=== PATIENT | female | born 1985 | race Caucasian/White ===

== ENCOUNTER 2019-06-12 16:40 | Observation (INO) | payer MEDICAID ==
[~2019-06-12] VITALS: Ht 165.1 cm; Wt 68.0 kg
[2019-06-12 18:41] LABS: BILIRUBIN,URINE NEGATIVE (NEGATIVE); UROBILINOGEN,URINE NORMAL (NEGATIVE)
[2019-06-12 18:44] LABS: BASOPHIL % 0.1 % (0.0-0.2); EOSINOPHIL # 0.1 10^3/uL (0.0-0.2); EOSINOPHIL % 1.2 % (0.0-5.0); HEMOGLOBIN 11.9 g/dL (12.0-15.0); MEAN CELL HGB 32.5 pg (26-34); MEAN CELL HGB CONCENTRATION 34.1 g/dL (33-37); MEAN CORP VOLUME 95.4 fL (78-100); MEAN PLATELET VOLUME 9.4 fL (7.8-11.0); MONOCYTES # 0.6 10^3/uL (0.3-0.8); MONOCYTES % 8.4 % (5.0-12.0); NEUTROPHIL # 5.2 10^3/uL (1.8-7.7); NEUTROPHILS % 75.7 % (41.0-85.0); RED CELL DISTRIBUTION WIDTH 13.7 % (11.5-14.5); WHITE BLOOD CELL 6.9 10^3/uL (4.5-11.0)
[2019-06-12 18:45] LABS: APPEARANCE,URINE CLEAR (CLEAR); UA COLOR YELLOW (YELLOW)
[2019-06-12] MEDS ORDERED: CELESTONE IM ONE (20:30)
[2019-06-12] MEDS ORDERED: CELESTONE ONE (20:31)
--- NOTE | 2019-06-12 20:35 | DIREP ---
PROCEDURE:US OB 2 3TRI DETAILED TRANSABD COMPARISON:[facility], US, US OB 2 3TRI DETAILED TRANSABD, 04/21/2019, 11:14 AM. INDICATIONS:28WEEK WITH VAGINAL BLEEDING AND COMPLETE PREVIA TECHNIQUE:Transabdominal sonography of a gravid uterus was performed. FINDINGS: Cervix Length:3.91 cm closed Heart Rate:153.58 1/min Estimated Weight:1480.67 g Biparietal Diameter:7.61 cmGA:30 weeks, 4 days Head Circumference:28.37 cmGA:31 weeks, 1 day Abdominal Circumference:26.02 cm GA:30 weeks, 1 day Femur Length:5.51 cm GA:29 weeks, 0 days Estimated weight 1481 g, 3 lb 4 oz Clinical age 28 weeks 0 days Ultrasound age 30 weeks 2 days, estimated due date 08/19/2019 POSITION:Transverse PLACENTAAnterior low-lying , 1.7 cm from the os. CONCLUSION:Intrauterine gestation with heart rate of 154 beats per minute estimated due date of 08/19/2019. Low-lying placenta 1.7 cm from the os, attention on follow-up. Dictated by: Erick Levi MD on 06/12/2019 at 08:29 PM
[2019-06-12 20:49] VITALS: BP 108/89
[2019-06-12] MEDS ORDERED: ENOX40DI SQ (20:59)
[2019-06-12] MEDS ORDERED: PNV1TABL82 PO (21:00)
[2019-06-12] MEDS ORDERED: BETA6VIA IJ (21:02)
[2019-06-13] MEDS ORDERED: CELESTONE ONE (09:13)
== END 2019-06-12 21:15 | disposition home or self-care (01) ==
LOC: ATP 16:40
PROVIDERS: ADMIT Obstetrics & Gynecology; ATTEND Obstetrics & Gynecology
DX: O46.93 Antepartum hemorrhage, unspecified, third trimester (principal); Z3A.28 28 weeks gestation of pregnancy
CPT/HCPCS: 36415; 59025; 76805; 80307; 81000; 85025; 87086; G0378 ×3; J0702; 96372

== ENCOUNTER → 2019-06-13 | Outpatient (CLI) | payer MEDICAID ==
[~2019-06-13] MED LIST: BETA6VIA IJ; CELESTONE IM ONE; CELESTONE ONE; ENOX40DI SQ; PNV1TABL82 PO
--- NOTE | 2019-06-13 21:30 | NUR ---
Celestone 12 mg IM to left dorsogluteal muscle pre order.
== END | disposition home or self-care (01) ==
LOC: OPOB 21:09
PROVIDERS: ATTEND Obstetrics & Gynecology
DX: O46.93 Antepartum hemorrhage, unspecified, third trimester (principal); Z3A.28 28 weeks gestation of pregnancy
CPT/HCPCS: 96372; J0702

== ENCOUNTER → 2019-06-24 | Outpatient (CLI) | payer MEDICAID ==
[~2019-06-24] MED LIST changes: -CELESTONE IM ONE; -CELESTONE ONE
[2019-06-24 12:22] LABS: HEMOGLOBIN 11.8 g/dL (12.0-15.0); MEAN CELL HGB 32.2 pg (26-34); MEAN CORP VOLUME 94.6 fL (78-100); MEAN PLATELET VOLUME 9.2 fL (7.8-11.0); RED CELL DISTRIBUTION WIDTH 13.3 % (11.5-14.5); WHITE BLOOD CELL 6.7 10^3/uL (4.5-11.0)
== END | disposition home or self-care (01) ==
LOC: LAB 11:48
PROVIDERS: ATTEND Obstetrics & Gynecology
DX: O09.512 Supervision of elderly primigravida, second trimester (principal); Z3A.31 31 weeks gestation of pregnancy
CPT/HCPCS: 36415; 82951; 85027; 86592

== ENCOUNTER → 2019-07-02 | Outpatient (CLI) | payer MEDICAID | END | disposition home or self-care (01) | LOC: LAB 08:27 | PROVIDERS: ATTEND Obstetrics & Gynecology | DX: O99.810 Abnormal glucose complicating pregnancy (principal); Z3A.33 33 weeks gestation of pregnancy | CPT/HCPCS: 36415; 82951 ==

== ENCOUNTER 2019-07-03 17:59 | Emergency (ER) | payer MEDICAID ==
[~2019-07-03] VITALS: Ht 165.1 cm; Wt 69.4 kg
--- NOTE | 2019-07-03 18:50 | NUR ---
34 YO, HT-65", WT-153#, NKDA, , LMP 11/28/2018, EDC 09/04/2019, 31.0 WEEKS IUP, COMPLAINING OF LEAKING OF FLUID SINCE 0900 THIS A.M... REPORTS GOOD MOVEMENT, DENIES VAG BLEEDING, DENIES ANY UC'S. DENIES ANY PAIN. HX OF DVT WITH 1ST , TAKING LOVENOX 40mg SQ @ HS. HX OF LOW LYING PLACENTA, ON PELVIC REST AT THIS TIME. DR MADDOX PLANS TO REPEAT US AT 32wks...FHR 134-152 PER PATI. VITAL SIGNS TEMP- 98.3, HR-70, RR-18, BP-109/62, [id number]-31% ON ROOM AIR. IN ADDITION TO LOVENOX SHE IS TAKING VITAMINS DAILY.
--- NOTE | 2019-07-03 19:00 | NUR ---
CCUA, UDS AND AMNISURE SPECIMEN OBTAINED. SPECIMENS SENT TO LAB.
[2019-07-03 19:24] VITALS: BP 109/62
[2019-07-03 19:28] VITALS: BP 109/62
--- NOTE | 2019-07-03 19:30 | NUR ---
FHR 145 PER DOPPLER, NO UC'S PRESENT, DENIES SAME. DENIES ANY PAIN SINCE ARRIVAL.
[2019-07-03 19:41] LABS: APPEARANCE,URINE CLEAR (CLEAR); BILIRUBIN,URINE NEGATIVE (NEGATIVE); UA COLOR YELLOW (YELLOW); UROBILINOGEN,URINE NORMAL (NEGATIVE)
--- NOTE | 2019-07-03 19:45 | NUR ---
DR SANTOYO IN TO SEE PT. DISCUSSSES NO RUPTURE PRESENT. DISCUSSES PLAN OF DISCHARGE. PT & VOICE UNDERSTANDING OF SAME.
--- NOTE | 2019-07-03 19:53 | ER.PDOC ---
General Chief Complaint: less 20 wks Stated Complaint: PREGANT - LEAKAGE TRAVEL OUT OF US: No Time seen by MD: 18:45 Source: patient Exam Limitations: no limitations History of Present Illness Initial Comments Possible amniotic fluid leakage. Patient is 31 weeks . No abdominal pain or vaginal bleeding. Severity: mild Associated Symptoms: denies symptoms Allergies: Coded Allergies: No Known Allergies (Unverified , 06/12/19) Home Meds Reported Medications Pnv No.122/Iron/Folic Acid ( Multi Tablet) 1 Each Tablet, 1 EACH PO DAILY24 for , TAB 06/12/19 Enoxaparin Sodium (LOVENOX) 40 Mg/0.4 Ml Disp.syrin, 40 MG SQ DAILY24 for prevention of blood clots, SYR 06/12/19 Past Medical History Medical History: no pertinent history Social History Alcohol Use: none Drug Use: none Review of Systems Constitutional: no symptoms reported Respiratory: no symptoms reported Cardiovascular: no symptoms reported Gastrointestinal: no symptoms reported Genitourinary: see HPI All Other Systems: Reviewed and Negative Physical Exam General Appearance: No Apparent Distress EENT: eyes nml inspection Neck: Non-Tender, Full Range of Motion Respiratory: chest non-tender, lungs clear, normal breath sounds, no respiratory distress, no accessory muscle use CVS: reg rate & rhythm, no murmur, no gallop, pulses nml, nml capillary refill Gastrointestinal: Normal Bowel Sounds, No Organomegaly, No Pulsatile Mass, Non Tender, Other (gravid uterus) Back: Normal Inspection Extremities: Normal Range of Motion Neurologic/Psychiatric: rn navigator II-XII NML as Tested Skin: Normal Color Results/Orders Results/Orders Orders - DONITA SANTOYO MD Urinalysis (07/03/19 19:34) Drug Screen Medical(Ml) (07/03/19 19:34) Amnisure (07/03/19 19:00) Vital Signs Date Time Temp Pulse Resp B/P (MAP) Pulse Ox O2 Delivery O2 Flow Rate FiO2 07/03/19 19:28 98.3 70 18 07/03/19 19:24 98.3 70 16 98 07/03/19 19:24 98.3 70 16 109/62 (78) 98 Room Air Laboratory Tests Test 07/03/19 19:20 Urine Collection Type UNKNOWN Urine Color YELLOW (YELLOW) Urine Appearance CLEAR (CLEAR) Urine Bilirubin NEGATIVE MG/DL (NEGATIVE) Urine Ketones NEGATIVE (NEGATIVE) Urine Specific [place] 1.010 (1.005-1.035) Urine pH 7 (5.0-6.0) Urine Protein NEGATIVE (NEGATIVE) Urine Urobilinogen NORMAL (NEGATIVE) Urine Nitrate NEGATIVE (NEGATIVE) Urine Leukocyte Esterase NEGATIVE (NEGATIVE) Urine Blood NEGATIVE (NEGATIVE) Urine Glucose NORMAL (NEGATIVE) Amniotic Fld Alpha Fetoprotein NO RUPTURE Progress Progress OB RN evaluated patient with me. FHR 134-152, Amnisure is negative. Patient feels fine to go home. Course Vitals & review Data Vital Sign - Last 24 Hours 07/03/19 07/03/19 07/03/19 19:24 19:24 19:28 Temp 98.3 98.3 98.3 Pulse 70 70 70 Resp 16 16 18 B/P (MAP) 109/62 (78) Pulse Ox 98 98 O2 Delivery Room Air Laboratory Tests Test 07/03/19 19:20 Urine Collection Type UNKNOWN Urine Color YELLOW Urine Appearance CLEAR Urine Bilirubin NEGATIVE MG/DL Urine Ketones NEGATIVE Urine Specific [place] 1.010 Urine pH 7 Urine Protein NEGATIVE Urine Urobilinogen NORMAL Urine Nitrate NEGATIVE Urine Leukocyte Esterase NEGATIVE Urine Blood NEGATIVE Urine Glucose NORMAL Amniotic Fld Alpha Fetoprotein NO RUPTURE O2 Sat by Pulse Oximetry: 98 Departure Time of Disposition: 19:52 Disposition: 01 HOME, SELF-CARE Impression: Primary Impression: Second trimester Condition: Stable Referrals: JOSSIE MADDOX DO (PCP) PRIMARY CARE PROVIDER Additional Instructions: F/U with your OB as needed Return to ED if worsening symptoms or concerns. Duration or Time Spent with Pa: 20 mins DONITA SANTOYO MD Jul 03, 2019 19:53
--- NOTE | 2019-07-03 20:00 | NUR ---
FHR 149 PER DOPPLER, NO UC'S PALPATED OR NOTED SINCE ARRIVAL. PT AFFIRMS SAME. DENIES LOWER BACKACHE, DENIES CHANGES IN VAGINAL DISCHARGE, DENIES HEAVINESS IN THIGHS. DENIES ANY PAIN AT THIS TIME.
--- NOTE | 2019-07-03 20:10 | NUR ---
DISCHARGED HOME AMBULATORY WITH WRITTEN AND ORAL INSTRUCTIONS. PT AND VOICE UNDERSTANDING OF ALL INSTRUCTIONS. CONDITION STABLE.
== END 2019-07-03 20:10 | disposition home or self-care (01) ==
LOC: ER 17:59
DX: Z71.1 Person with feared health complaint in whom no diagnosis is made (principal); Z3A.31 31 weeks gestation of pregnancy
CPT/HCPCS: 80307; 81002; 84112; 99284

== ENCOUNTER 2019-07-06 14:44 | Observation (INO) | payer MEDICAID ==
[~2019-07-06] VITALS: Ht 165.1 cm; Wt 69.4 kg
--- NOTE | 2019-07-06 17:12 | DIREP ---
PROCEDURE:US BIOPHYSICAL PROFILE W/O NON STRESS COMPARISON:[facility], , OB 2 3TRI DETAILED TRANSABD, 06/12/2019, 07:08 PM. [facility], , OB 2 3TRI DETAILED TRANSABD, 04/21/2019, 11:14 AM. INDICATIONS:VAG BLEEDING, PREVIOUS LOW LYING PLACENTA PER 06/12/2019 US FINDINGS: Breathing:Normal, 2. Movement:Normal, 2. Tone:Normal, 2. Fluid:Normal, 2. Total: 8 , 8 Number:Sanchez. Position:Breech Placenta:Anterior. Placenta appears at least low-lying, 1 cm from the internal os of the cervix transabdominally. Closer to delivery transvaginal assessment may be necessary to ensure there are no placental components on the cervix. Amniotic Fluid Volume:6.8 cm. Normal. Cervix:Normal transabdominal assessment. Heart Rate:139 bpm. Clinical GA: 31 weeks, 3 days Clinical ANTOINETTE: 09/04/2018 anatomic survey was not performed. No abnormalities are seen. CONCLUSION: 1. Single live intrauterine . 2. BPP 8/8. 3. Placenta appears at least low-lying. Please see above comment. Dictated by: Benita Boles MD on 07/06/2019 at 04:58 PM
[2019-07-06 17:18] LABS: BILIRUBIN,URINE NEGATIVE (NEGATIVE); UROBILINOGEN,URINE NORMAL (NEGATIVE)
[2019-07-06 17:26] LABS: APPEARANCE,URINE SLIGHTLY HAZY (CLEAR); UA COLOR YELLOW (YELLOW)
[2019-07-06 17:45] VITALS: BP 111/60
== END 2019-07-06 18:20 | disposition home or self-care (01) ==
LOC: ATP 14:44 → EDPENDDISTM 17:40
PROVIDERS: ADMIT Obstetrics & Gynecology; ATTEND Obstetrics & Gynecology
DX: O46.93 Antepartum hemorrhage, unspecified, third trimester (principal); Z3A.31 31 weeks gestation of pregnancy; Z79.899 Other long term (current) drug therapy
CPT/HCPCS: 59025; 76819; 80307; 81000; 87086; G0378 ×4

== ENCOUNTER → 2019-07-28 | Outpatient (CLI) | payer MEDICAID ==
--- NOTE | 2019-07-28 13:51 | DIREP ---
PROCEDURE:US BIOPHYSICAL PROFILE W/O NON STRESS COMPARISON:[facility], , US BIOPHYSICAL PROFILE W/O NON STRESS, 07/06/2019, 04:34 PM. [facility], OB 2 3TRI DETAILED TRANSABD, 06/12/2019, 07:08 PM. [facility], OB 2 3TRI DETAILED TRANSABD, 04/21/2019, 11:14 AM. INDICATIONS:O44.43 LOW LYING NOS, THIRD TRIMESTER FINDINGS: Breathing:Normal, 2. Movement:Normal, 2. Tone:Normal, 2. Fluid:Normal, 2. Total: 8 , 8 Number:Sanchez. Position:Cephalic. Placenta:Anterior. Endovaginal imaging was performed to better assess placental morphology. Images suggest at least partial and possibly complete placenta previa. Amniotic Fluid Volume:Largest vertical pocket: 6.0 cm, (normal is 2-8 cm). Cervix:Measures 3.8 cm. The cervix appears closed. Heart Rate:137 bpm. Biparietal Diameter:8.8 cm,(35 weeks, 2 days),71.9 percentile.* Head Circumference:33.3 cm,(38 weeks, 0 days),92.0 percentile.* Abdominal Circumference:34.3 cm,(38 weeks, 1 day),> 97 percentile.* Femur Length:6.6 cm,(34 weeks, 0 days),27.3 percentile.* Estimated Weight:3057 g,( > 90 percentile). * *(The percentiles for estimated weight and biometrics are extrapolated from the patients last menstrual period. Depending on the accuracy of the patients dates, the percentiles may or may not be accurate. Clinical correlation is necessary.) Ultrasound GA: 36 weeks, 3 days Ultrasound ANTOINETTE: August 22, 2019 Clinical GA: 34 weeks, 4 days Clinical ANTOINETTE: September 04, 2019 Complete anatomic survey was not performed. Hydronephrosis of the right kidney incidentally noted. CONCLUSION: 1. Biophysical profile 02/19. 2. Provided images suggest partial placenta previa versus complete placenta previa, 1 of the images suggest complete placental covering of the cervical loss. 3. Growth percentiles show estimated weight, head circumference and abdominal circumference to be greater than 90th percentile. Percentiles are based on last menstrual period which may limit accuracy. 4. Right renal hydronephrosis incidentally imaged. Continued follow-up recommended. Dictated by: COSTA Physician on 07/28/2019 at 12:28 PM ac
== END | disposition home or self-care (01) ==
LOC: RAD 10:47
PROVIDERS: ATTEND Obstetrics & Gynecology
DX: O09.523 Supervision of elderly multigravida, third trimester (principal); O44.43 Low lying placenta NOS or without hemorrhage, third trimester; N13.30 Unspecified hydronephrosis; Z3A.36 36 weeks gestation of pregnancy
CPT/HCPCS: 76815; 76817; 76819

== ENCOUNTER 2019-08-10 04:44 | Inpatient (IN) | payer MEDICAID ==
[2019-08-07 10:40] VITALS: BP 121/71
[2019-08-07 11:13] LABS: BASOPHIL % 0.4 % (0.0-0.2); EOSINOPHIL # 0.1 10^3/uL (0.0-0.2); EOSINOPHIL % 1.6 % (0.0-5.0); LYMPHOCYTES # 0.81 10^3/uL1 (1.0-4.8); LYMPHOCYTES % 14.2 % (24.0-44.0); MEAN CORP HGB 31.8 pg (26-34); MONOCYTES # 0.6 10^3/uL (0.3-0.8); MONOCYTES % 9.8 % (5.0-12.0); NEUTROPHIL # 4.1 10^3/uL (1.8-7.7); NEUTROPHILS % 72.1 % (41.0-85.0); PLATELET COUNT 179 10^3/uL (150-400)
[~2019-08-10] VITALS: Ht 165.1 cm; Wt 74.4 kg
[2019-08-10] VITALS (9 sets, daily range): BP systolic 114–126; BP diastolic 52–73
[~2019-08-10 04:44] MED LIST changes: +HEPA100D36 SQ
[2019-08-10] MEDS ORDERED: LACTATED RINGERS 1,000 ML ONE ×3 (04:49→21:56)
[2019-08-10] MEDS ORDERED: LACTATED RINGERS 1,000 ML IV PRN (05:30)
[2019-08-10 05:41] LABS: MEAN CORP HGB 31.8 pg (26-34); RED CELL DISTRIBUTION WIDTH 13.8 % (11.5-14.5)
[2019-08-10] MEDS ORDERED: NS 100ML 200 ML IV ONE (07:02)
[2019-08-10] MEDS ORDERED: BENADRYL ONE (07:02)
[2019-08-10] MEDS ORDERED: KETAMINE HCL-Non-Preferred ONE (07:03)
[2019-08-10] MEDS ORDERED: EPHEDRINE SULFATE ONE (07:03)
[2019-08-10] MEDS ORDERED: DURAMORPH ONE (07:03)
[2019-08-10] MEDS ORDERED: DECADRON ONE (07:04)
[2019-08-10] MEDS ORDERED: ZOFRAN ONE (07:04)
[2019-08-10] MEDS ORDERED: TORADOL ONE (07:04)
[2019-08-10] MEDS ORDERED: OXYTOCIN 30 UNIT/NS 500 ML 1,000 ML IV ONE (07:04)
[2019-08-10] MEDS ORDERED: ANCEF ONE (07:05)
[2019-08-10] MEDS ORDERED: SODIUM CHLORIDE IRR BOTTLE IR ONE (07:18)
--- NOTE | 2019-08-10 08:52 | NUR ---
SUCTIONED 8CC BLOODY/CLEAR SECRETIONS, CONTINUED TO DRY AND STIMULATE, PLACED IN WARM BLANKETS, PT PALE, CAP REFILL 5-6 SECONDS, GAVE BLOWBY O2 AND PLACED SAO2 PROBE ON PT, SAO2 98 % ON 40% WEAN O2 SAO2 93%, PT FOOTPRINTED AND ID BANDED, PLACED IN WARM BLANKETS AND SHOWN TO MOTHER, PT, FATHER AND L/D STAFF WENT TO [facility], APGARS 6,6,7 GIVEN Addendum: 08/10/19 at 0857 by Kim Byrnes RRT RT Amended: Links added.
[2019-08-10] MEDS ORDERED: DILAUDID IV PRN (10:00)
[2019-08-10] MEDS ORDERED: NARCAN IV PRN (10:00)
[2019-08-10] MEDS ORDERED: LACTATED RINGERS 1,000 ML IV ONE (10:00)
[2019-08-10] MEDS ORDERED: GENASYME PO PRN (10:00)
[2019-08-10] MEDS ORDERED: NUBAIN IV PRN ×2 (10:00)
[2019-08-10] MEDS ORDERED: DEMEROL IV PRN (10:00)
[2019-08-10] MEDS ORDERED: OXYTOCIN 30 UNIT/NS 500 ML 500 ML IV ONE (10:00)
[2019-08-10] MEDS ORDERED: PHENERGAN IV PRN ×2 (10:00)
[2019-08-10] MEDS ORDERED: NORCO 10MG PO PRN (10:00)
[2019-08-10] MEDS ORDERED: MORPHINE SULFATE IV PRN (10:00)
[2019-08-10] MEDS ORDERED: SUBLIMAZE IV PRN (10:00)
[2019-08-10] MEDS ORDERED: LANOLIN HYDROUS TP PRN (10:00)
[2019-08-10] MEDS ORDERED: LACTATED RINGERS 1,000 ML SCH (10:00)
[2019-08-10] MEDS ORDERED: BISAC-EVAC RC PRN (10:00)
[2019-08-10] MEDS ORDERED: BENADRYL IV PRN ×2 (10:00)
[2019-08-10] MEDS ORDERED: D5LR 1000ML 1,000 ML IV ONE (10:00)
--- NOTE | 2019-08-10 10:29 | OPH ---
DATE OF SURGERY: 08/10/2019 PREOPERATIVE DIAGNOSES: Placenta previa at 36 weeks 3 days, advanced maternal age. POSTOPERATIVE DIAGNOSES: Placenta previa at 36 weeks 3 days, advanced maternal age. PROCEDURE: Primary low transverse section with double layer uterine closure, attempted vacuum extraction. SURGEON: Phyllis Faust DO. SANITARY CHEMIST: Chris Oreilly. ANESTHESIA: Spinal. SPECIMENS: Placenta. QUANTITATIVE BLOOD LOSS: 1618. FINDINGS: Viable female , Apgars 6 and 7, weight 3074 grams. PROCEDURE IN DETAIL: The patient was brought to the operating room where anesthesia was found to be adequate. She was then prepped and draped in normal sterile fashion and placed in the supine position with leftward tilt. Timeout was performed. We proceeded with a Pfannenstiel skin incision that was made with a knife and extended to the fascial layers. Fascia was transected in the midline with Foote scissors. The superior aspect of the fascial incision was identified, tented up and and the rectus muscles were taken down with sharp and blunt dissection. In a similar fashion, the inferior aspect of the fascial incision was identified, tented up and the rectus muscle was taken down with sharp and blunt dissection. The rectus muscles were in the midline with sharp and blunt dissection. The peritoneum was entered into with blunt dissection. The bladder blade was placed and attempted to extend to make more room with transecting the peritoneum and then I made the bladder flap. The vesicouterine peritoneum was identified, tented up and the bladder flap was then created digitally. Bladder blade was then reinserted. The uterine incision was made with the knife on the right side. I entered into the placenta. Bleeding was noted. The uterine incision was extended with the bandage scissors. I attempted to remove the infant in vertex position, but I thought the amniotic sac was ruptured, but it had not been ruptured and I ruptured the sac. Clear fluid was noted. I was able to bring the head close to the uterine incision as the placenta was being expelled through the right portion of the incision, proved difficult to remove the 's head. I attempted a vacuum extraction. The vacuum was placed in the green and one attempt was made to remove the fetus. Then I had one pop off. The procedure was abandoned. I then did a Maylard incision on the left rectus muscles, repositioned infant and she was delivered in vertex position. Spontaneous cry was noted. Delayed cord clamp at 1 minute was done. The infant was handed to the waiting pediatric team. Cord blood was obtained. The placenta was manually removed and the uterus was cleared of all clots and debris. The uterine incision was closed in a double layer closure, first in a running locked fashion, second in an imbricating locked fashion with 0 Monocryl. The right angle was not hemostatic. Therefore, [id number] sutures were used to obtain hemostasis. The area was inspected and hemostasis was noted. Small bleeders were cauterized with the Bovie. Surgicel was placed along the uterine incision and gutters were cleared of all clots and debris. The rectus muscle on the left was reapproximated with a [id number] suture with 2-0 chromic suture and the rectus muscle was closed in interrupted fashion with 2-0 chromic suture. Hemostasis was noted. The fascia was reapproximated with 0 Vicryl suture starting at the apices and meeting at the midline. Subcutaneous tissue was closed in a double layer closure with 2-0 chromic suture and the skin was closed with 4-0 Monocryl. The patient tolerated the procedure well. She was taken to the recovery room in stable condition. Phyllis Faust DO DR: COURTNEY/tali JOB# [id number]
[2019-08-10] MEDS: TYLENOL PO PRN (11:57)
[2019-08-10] MEDS: NORCO 5MG PO PRN (11:58)
[2019-08-10 15:22] LABS: RED CELL DISTRIBUTION WIDTH 13.8 % (11.5-14.5)
[2019-08-10 18:31] LABS: BASOPHIL % 0.1 % (0.0-0.2); EOSINOPHIL % 0.1 % (0.0-5.0); LYMPHOCYTES # 0.56 10^3/uL1 (1.0-4.8); LYMPHOCYTES % 5.2 % (24.0-44.0); MEAN CORP HGB 32.2 pg (26-34); MONOCYTES # 0.6 10^3/uL (0.3-0.8); MONOCYTES % 5.4 % (5.0-12.0); NEUTROPHIL # 9.4 10^3/uL (1.8-7.7); NEUTROPHILS % 88.5 % (41.0-85.0); PLATELET COUNT 165 10^3/uL (150-400); RED CELL DISTRIBUTION WIDTH 13.6 % (11.5-14.5)
[2019-08-10] MEDS: LOVENOX SQ SCH (19:36)
[2019-08-10 20:02] LABS: BAND NEUTROPHILS 1 % (2-6); LYMPHOCYTE 4 % (25-36); MONOCYTE 3 % (3-9); SEGMENTED NEUTROPHILS 92 % (31-76)
[2019-08-10] MEDS ORDERED: COLACE PO ONE (21:51)
[2019-08-10] MEDS: COLACE PO SCH (21:55)
[2019-08-11 05:59] LABS: BASOPHIL % 0.1 % (0.0-0.2); EOSINOPHIL # 0.1 10^3/uL (0.0-0.2); EOSINOPHIL % 0.8 % (0.0-5.0); LYMPHOCYTES # 0.96 10^3/uL1 (1.0-4.8); LYMPHOCYTES % 12.8 % (24.0-44.0); MEAN CORP HGB 31.8 pg (26-34); MONOCYTES # 0.6 10^3/uL (0.3-0.8); MONOCYTES % 7.8 % (5.0-12.0); NEUTROPHIL # 5.8 10^3/uL (1.8-7.7); NEUTROPHILS % 77.3 % (41.0-85.0); PLATELET COUNT 148 10^3/uL (150-400); RED CELL DISTRIBUTION WIDTH 13.9 % (11.5-14.5)
[2019-08-11] MEDS ORDERED: COLACE PO ONE ×2 (08:56→22:12)
[2019-08-11] MEDS: COLACE PO SCH ×2 (09:00→21:00)
[2019-08-11] MEDS ORDERED: NORCO 5MG PO ONE (10:04)
[2019-08-11] MEDS ORDERED: FERROUS SULFATE PO STA (10:06)
[2019-08-11] MEDS: NORCO 5MG PO PRN (10:10)
--- NOTE | 2019-08-11 10:23 | PRM.PN ---
Progress Note Subjective Date: Aug 10, 2019 Time: 10:07 Physician Notes: POD # 1 Pt is doing well today and she hasn't taken pain meds throughout the night. Pt is concerned about meds going to during . Goodson cath is out and she is currently sitting up in the chair holding infant. She has been up to the bathroom, but not to shower yet. Nursing and bottle feeding secondary to infants BS. Pt is currently tearful. She and partner are upset. They state that nursing was pressing her for feedings and she has been overwhelmed and fatigued with feeding throughout the night. They are concerned about their daughters health and felt that nursing was not being sensitive. We addressed nursing issues and allowed them to express their concerned. We discussed using pain medication prior to shower and throughout the day to assist with pain management. Importance of adequate pain control with healing and movement addressed. We will bring in breast pump for assistance and work on nursing accordingly. Plan to walk in room and halls today. Discussed anemia. We will continue daily Lovenox. VSS 115/57,86,92%,99.2 ABD-pt holding now, deferred A/ 34 y/o s/p PLTCS for placenta previa Anemia-post operative Hx DVT GBS neg AMA P/ Lovenox 40 SQ daily Ambulation Iron daily Breast pump-Nursing assistance Pt declined flu and Tdap during -Will offer Objective Review IO, Exams,& Results Vital Signs Date Time Temp Pulse Resp B/P (MAP) Pulse Ox O2 Delivery O2 Flow Rate FiO2 08/10/19 10:45 72 16 124/69 (87) 99 Room Air 08/10/19 09:35 97.1 Intake and Output 08/11/19 07:00 Intake Total 4500 ml Output Total 200 ml Balance 4300 ml Intake Electrolyte Solution 1500 ml IV Total 3000 ml Output Urine Total 200 ml Laboratory Tests Test 08/10/19 05:33 08/10/19 15:05 08/10/19 18:20 08/10/19 18:33 White Blood Count 6.1 10^3/uL 8.7 10^3/uL 10.7 10^3/uL Red Blood Count 3.80 10^6/uL 4.00 10^6/uL 3.35 10^6/uL Hemoglobin 12.1 g/dL 12.8 g/dL 10.8 g/dL Hematocrit 35.2 % 37.2 % 31.1 % Mean Corpuscular Volume 92.6 fL 93.0 fL 92.8 fL Mean Corpuscular Hemoglobin 31.8 pg 32.0 pg 32.2 pg Mean Corpuscular Hemoglobin Concent 34.4 g/dL 34.4 g/dL 34.7 g/dL Red Cell Distribution Width 13.8 % 13.8 % 13.6 % Platelet Count 170 10^3/uL 141 10^3/uL 165 10^3/uL Mean Platelet Volume 10.3 fL 10.1 fL 10.0 fL HIV-1 Antibody NON-REACTIVE HIV-2 Antibody NON-REACTIVE Neutrophils (%) (Auto) 88.5 % Lymphocytes (%) (Auto) 5.2 % Monocytes (%) (Auto) 5.4 % Neutrophils # (Auto) 9.4 10^3/uL Lymphocytes # (Auto) 0.56 10^3/uL1 Monocytes # (Auto) 0.6 10^3/uL Absolute Immature Granulocyte (auto 0.08 10^3 u/L Absolute Eosinophils (auto) 0.0 10^3/uL Immature Granulocytes % 0.70 % Eosinophils % 0.1 % Basophils % 0.1 % Basophils # 0.0 10^3/uL Differential Total Cells Counted 100 #CELLS Segmented Neutrophils 92 % Band Neutrophils 1 % Lymphocytes 4 % Monocytes 3 % Platelet Estimate ADEQUATE Platelet Morphology NORMAL Hypochromasia 1+ Test 08/11/19 05:50 White Blood Count 7.5 10^3/uL Red Blood Count 3.05 10^6/uL Hemoglobin 9.7 g/dL Hematocrit 28.6 % Mean Corpuscular Volume 93.8 fL Mean Corpuscular Hemoglobin 31.8 pg Mean Corpuscular Hemoglobin Concent 33.9 g/dL Red Cell Distribution Width 13.9 % Platelet Count 148 10^3/uL Mean Platelet Volume 9.7 fL Neutrophils (%) (Auto) 77.3 % Lymphocytes (%) (Auto) 12.8 % Monocytes (%) (Auto) 7.8 % Neutrophils # (Auto) 5.8 10^3/uL Lymphocytes # (Auto) 0.96 10^3/uL1 Monocytes # (Auto) 0.6 10^3/uL Absolute Immature Granulocyte (auto 0.09 10^3 u/L Absolute Eosinophils (auto) 0.1 10^3/uL Immature Granulocytes % 1.20 % Eosinophils % 0.8 % Basophils % 0.1 % Basophils # 0.0 10^3/uL Current Medications Medications (Trade) Dose Ordered Sig/Anne PRN Reason Start Time Stop Time Status Last Admin Acetaminophen (Tylenol) 1,000 mg Q12HR PRN PAIN 1 - 3 08/10/19 10:00 09/09/19 09:59 08/10/19 11:57 Acetaminophen/ Hydrocodone Bitart ([place] 10mg) 1 each Q6H PRN PAIN 7 - 10 08/10/19 10:00 09/09/19 09:59 Acetaminophen/ Hydrocodone Bitart ([place] 5mg) 1 ea Q6H PRN PAIN 4 - 6 08/10/19 10:00 09/09/19 09:59 08/10/19 11:58 Bisacodyl (Bisac-Evac) 10 mg PRN PRN CONSTIPATION 08/10/19 10:00 09/09/19 09:59 Diphenhydramine HCl (Benadryl) 25 mg Q6HR PRN ITCHING 08/10/19 10:00 09/09/19 09:59 Docusate Sodium (Colace) 100 mg BID 08/10/19 21:00 09/09/19 20:59 08/11/19 09:00 Enoxaparin Sodium (Lovenox) 40 mg Q24HRS 08/10/19 18:30 09/09/19 18:29 08/10/19 19:36 Lanolin (Lanolin Hydrous) 1 gm PRN PRN CHAPPED NIPPLES 08/10/19 10:00 09/09/19 09:59 Promethazine HCl (Phenergan) 12.5 mg Q6H PRN NAUSEA / VOMITING 08/10/19 10:00 09/09/19 09:59 Simethicone (Genasyme) 80 mg Q6H PRN GAS 08/10/19 10:00 09/09/19 09:59 Binu - JOSSIE MADDOX DO Npo-Dietary Req Nothing By Mo. (08/10/19 Breakfast) Abd/Pubic Clipper Prep For Cs (08/10/19 05:12) Place Goodson Catheter (08/10/19 05:12) Surgical Consent For (08/10/19 05:12) Vital Signs Routine (08/10/19 05:12) Pre-Op Per Anesthesia (08/10/19 05:12) Ringer's Solution,Lactated (Lactated Rin (08/10/19 05:30) Type And Screen (08/10/19 05:12) Hbsag (Surf Antigen) (08/10/19 05:12) Rbc-No Active Bleeding (08/10/19 05:12) Bisacodyl (Bisac-Evac) (08/10/19 10:00) Diphenhydramine Hcl (Benadryl) (08/10/19 10:00) Lanolin (Lanolin Hydrous) (08/10/19 10:00) Promethazine Hcl (Phenergan) (08/10/19 10:00) Simethicone (Genasyme) (08/10/19 10:00) Abdominal Binder (08/10/19 09:51) Bedrest With Po Ambulat/Assist (08/10/19 09:51) Dc Goodson (08/10/19 09:51) Anesthesia For Pain Control (08/10/19 09:51) Strict I&O Q4hr (08/10/19 09:51) Scd's While In Bed (08/10/19 09:51) Po Surgical Vitals (08/10/19 09:51) Regular Diet (08/10/19 Breakfast) Admit Orders (08/10/19 09:51) Hydrocodone/Acetaminophen ([place] 5mg) (08/10/19 10:00) Hydrocodone/Acetaminophen ([place] 10mg) (08/10/19 10:00) Docusate Sodium (Colace) (08/10/19 21:00) Acetaminophen (Tylenol) (08/10/19 10:00) Enoxaparin Sodium (Lovenox) (08/10/19 18:30) JOSSIE MADDOX DO Aug 11, 2019 10:22
[2019-08-11] MEDS ORDERED: TYLENOL PO ONE (16:28)
[2019-08-11] MEDS: TYLENOL PO PRN (16:31)
[2019-08-11] MEDS: LOVENOX SQ SCH (19:32)
--- NOTE | 2019-08-11 20:39 | PRM.PN ---
Assessment/Plan Assessment/Plan Pt and partner in room. Pt holding . States she is doing well and eating every 3-4 hrs. Parents were able to rest a little today. No current complaints. Offered Tdap & Flu vaccine. She is undecided at this time. Discussed RSV/Flu season and recommendations. Pt is concerned about getting sick with the virus after vaccine. Pt will consider and request if she changes mind. JOSSEI MADDOX DO Aug 11, 2019 20:39
[2019-08-12] MEDS ORDERED: TYLENOL PO ONE (04:24)
[2019-08-12] MEDS: TYLENOL PO PRN (04:28)
[2019-08-12] MEDS ORDERED: COLACE PO ONE (07:44)
[2019-08-12] MEDS ORDERED: FERROUS SULFATE PO ONE (07:45)
[2019-08-12] MEDS: COLACE PO SCH (07:52)
[2019-08-12 08:31] VITALS: BP 117/67
[2019-08-12] MEDS ORDERED: FERROUS SULFATE PO SCH (09:00)
[2019-08-12] MEDS ORDERED: TYLENOL #3 PO PRN (09:00)
[2019-08-12] MEDS ORDERED: TYLENOL #3 PO ONE (11:02)
--- NOTE | 2019-08-12 11:15 | NUR ---
SOCIAL SERVICE CONSULT: SS RECEIVED CONSULT DUE TO PT'S ADVANCED MATERNAL AGE AND HAVING FLAT AFFECT. SW VISITED WITH PT WHILE SPOUSE WAS IN THE ROOM. PT WAS FLAT BUT DID SMILE AND LAUGH A FEW TIMES THROUGHOUT ASSESSMENT. PT DOES HAVE ADDITIONAL CHILDREN AND HER PREVIOUS YOUNGEST CHILD IS 13. PT AND SPOUSE STATE THEY HAVE EVERYTHING THEY NEED FOR THE BABY AND A GREAT SUPPORT SYSTEM. PT'S PHYSICIAN STATES THERE ARE NO CONCERN. PT AND BABY ARE BONDING AND MOTHER IS INTERACTING APPROPRIATELY. NO FURTHER NEEDS NOTED OR IDENTIFIED AT THIS TIME. CONTACT INFORMATION PROVIDED. GOAL IS TO DISCHARGE HOME TODAY AND FOLLOW UP WITH DR. MADDOX NEXT WEEK. NO FURTHER SS NEEDS NOTED OR IDENTIFIED AT THIS TIME.
--- NOTE | 2019-08-12 11:25 | PRM.PN ---
Progress Note Subjective Date: Aug 12, 2019 Time: 11:23 Physician Notes: POD # 2 Pt is doing much better today. They were able to get some rest and her daughter is doing well. She is pumping and nursing. Did not feel good taking Oden so does not want to take anymore. Will try a T# 3. Ambulating in room without difficulty. Denies s/s of anemia. VS ,83,18,98.1 ABD-incision C/D/I no s/s of infection EX-Full ROM, NT, no edema A/ 34 y/o s/p PLTCS for placenta previa-POD # 2 Anemia-post operative Hx DVT GBS neg AMA P/ Lovenox 40 SQ daily Ambulation Iron daily Breast pump-Nursing assistance prn, discussed [facility] nursing outpatient assistance Pt declined flu and Tdap D/C to home with 1 week office f/u Objective Review IO, Exams,& Results Vital Signs Date Time Temp Pulse Resp B/P (MAP) Pulse Ox O2 Delivery O2 Flow Rate FiO2 08/12/19 08:31 98.1 71 18 100 Room Air 08/10/19 10:45 124/69 (87) Laboratory Tests Test 08/10/19 15:05 08/10/19 18:20 08/10/19 18:33 08/11/19 05:50 White Blood Count 8.7 10^3/uL 10.7 10^3/uL 7.5 10^3/uL Red Blood Count 4.00 10^6/uL 3.35 10^6/uL 3.05 10^6/uL Hemoglobin 12.8 g/dL 10.8 g/dL 9.7 g/dL Hematocrit 37.2 % 31.1 % 28.6 % Mean Corpuscular Volume 93.0 fL 92.8 fL 93.8 fL Mean Corpuscular Hemoglobin 32.0 pg 32.2 pg 31.8 pg Mean Corpuscular Hemoglobin Concent 34.4 g/dL 34.7 g/dL 33.9 g/dL Red Cell Distribution Width 13.8 % 13.6 % 13.9 % Platelet Count 141 10^3/uL 165 10^3/uL 148 10^3/uL Mean Platelet Volume 10.1 fL 10.0 fL 9.7 fL Neutrophils (%) (Auto) 88.5 % 77.3 % Lymphocytes (%) (Auto) 5.2 % 12.8 % Monocytes (%) (Auto) 5.4 % 7.8 % Neutrophils # (Auto) 9.4 10^3/uL 5.8 10^3/uL Lymphocytes # (Auto) 0.56 10^3/uL1 0.96 10^3/uL1 Monocytes # (Auto) 0.6 10^3/uL 0.6 10^3/uL Absolute Immature Granulocyte (auto 0.08 10^3 u/L 0.09 10^3 u/L Absolute Eosinophils (auto) 0.0 10^3/uL 0.1 10^3/uL Immature Granulocytes % 0.70 % 1.20 % Eosinophils % 0.1 % 0.8 % Basophils % 0.1 % 0.1 % Basophils # 0.0 10^3/uL 0.0 10^3/uL Differential Total Cells Counted 100 #CELLS Segmented Neutrophils 92 % Band Neutrophils 1 % Lymphocytes 4 % Monocytes 3 % Platelet Estimate ADEQUATE Platelet Morphology NORMAL Hypochromasia 1+ Current Medications Medications (Trade) Dose Ordered Sig/Anne PRN Reason Start Time Stop Time Status Last Admin Acetaminophen (Tylenol) 1,000 mg Q12HR PRN PAIN 1 - 3 08/10/19 10:00 09/09/19 09:59 08/12/19 04:28 Acetaminophen/ Codeine Phosphate (Tylenol #3) 1 each Q6H PRN PAIN 4 - 6 08/12/19 09:00 09/11/19 08:59 08/12/19 11:06 Bisacodyl (Bisac-Evac) 10 mg PRN PRN CONSTIPATION 08/10/19 10:00 09/09/19 09:59 Diphenhydramine HCl (Benadryl) 25 mg Q6HR PRN ITCHING 08/10/19 10:00 09/09/19 09:59 Docusate Sodium (Colace) 100 mg BID 08/10/19 21:00 09/09/19 20:59 08/12/19 07:52 Enoxaparin Sodium (Lovenox) 40 mg Q24HRS 08/10/19 18:30 09/09/19 18:29 08/11/19 19:32 Ferrous Sulfate (Ferrous Sulfate) 325 mg DAILY 08/12/19 09:00 09/11/19 08:59 08/12/19 07:52 Lanolin (Lanolin Hydrous) 1 gm PRN PRN CHAPPED NIPPLES 08/10/19 10:00 09/09/19 09:59 Promethazine HCl (Phenergan) 12.5 mg Q6H PRN NAUSEA / VOMITING 08/10/19 10:00 09/09/19 09:59 Simethicone (Genasyme) 80 mg Q6H PRN GAS 08/10/19 10:00 09/09/19 09:59 Orders - JOSSIE MADDOX DO Enoxaparin Sodium (Lovenox) (08/10/19 18:30) Ferrous Sulfate (Ferrous Sulfate) (08/12/19 09:00) Social Service Consult (08/12/19 08:29) Acetaminophen With Codeine (Tylenol #3) (08/12/19 09:00) JOSSIE MADDOX DO Aug 12, 2019 11:25
--- NOTE | 2019-08-12 11:33 | PRM.DC ---
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 No known health problems V19 CHILD (18) V19 CHILD (14) Unknown 21 Unknown Family History 32 MOTHER, , Age:41 ( at 41 years of age with complications of SLE.) 33 FATHER No Family History of: Alzheimer's disease Asthma Cerebrovascular disorder Chronic obstructive pulmonary disease Congestive heart failure Diabetes insipidus Diabetes mellitus Hypertension Parkinson's disease Complications: No Complications Discharge Diagnosis: S/P Discharge Disposition: Stable Assessment & Plan A/ 34 y/o s/p PLTCS for placenta previa-POD # 2 Anemia-post operative Hx DVT GBS neg AMA P/ Lovenox 40 SQ daily Ambulation Iron daily Breast pump-Nursing assistance prn, discussed [facility] nursing outpatient assistance Pt declined flu and Tdap D/C to home with 1 week office f/u JOSSIE MADDOX DO Aug 12, 2019 11:33
[2019-08-12] MEDS ORDERED: FERR325T15 PO (11:35)
== END 2019-08-12 14:00 | disposition home or self-care (01) | DRG 540 ==
LOC: LND 04:44 → EDSTATUS 08:00
PROVIDERS: ADMIT Obstetrics & Gynecology; ATTEND Obstetrics & Gynecology
PROC: 10D00Z1 Extraction of Products of Conception, Low, Open Approach (ICD-10-PCS; principal; 2019-08-10 08:00)
DX: O44.03 Complete placenta previa NOS or without hemorrhage, third trimester (principal); O60.14X0 Preterm labor third trimester with preterm delivery third trimester, not applicable or unspecified; O66.5 Attempted application of vacuum extractor and forceps; Z37.0 Single live birth; Z3A.36 36 weeks gestation of pregnancy; D64.9 Anemia, unspecified; O90.81 Anemia of the puerperium
CPT/HCPCS: 36415; 59025; 76825; 85025; 85027; 85610; 85730; 86318; 86885; 86900; 86901; 86921; 87340; A4217; G0378; J0690; J1100; J1200; J1650; J1885; J2405; J3490; J7050; J7120; 88307; J2274

== ENCOUNTER 2021-01-22 11:14 | Emergency (ER) | payer MEDICAID ==
[~2021-01-22] VITALS: Ht 165.1 cm; Wt 68.0 kg
[~2021-01-22 11:14] MED LIST changes: +FERR325T15 PO
[2021-01-22 11:27] VITALS: BP_SYST 94; BP_DIAS 52; BP_DIAS 58
--- NOTE | 2021-01-22 11:31 | NUR ---
ARRIVAL PATIENT ARRIVED TO ED8 AMBULATORY, C/O OF MENSTRUAL CRAMPS TODAY, PATIENT STATES SHE STARTED SPOTTING AND CRAMPING LAST NIGHT, TOOK SOME TYLENOL WITH NO RELIEF, TODAY THEY CONTINUED, CAME TO THE ED FOR EVAL, DOCTOR GALO NOTIFIED OF PATIENT'S ARRIVAL.
[2021-01-22] MEDS ORDERED: ZOFRAN ODT ONE (11:41)
[2021-01-22] MEDS ORDERED: TORADOL ONE (11:42)
--- NOTE | 2021-01-22 11:42 | ER.PDOC ---
General Chief Complaint: Female Urogenital Problems Stated Complaint: ABD PAIN,FEMALE Time seen by MD: 11:30 Source: patient Exam Limitations: no limitations History of Present Illness Initial Comments 35-year-old female with no significant past medical history presents to the emergency department with complaint of menstrual cramps since yesterday. Patient states she took 2 Tylenols yesterday and one ibuprofen [id number]-ket-[id number] yesterday afternoon which helps some however she has not taken any pain medication since then. She states she was nauseous this morning and did not feel like she would be able to keep it down. Patient states her last period was December 22, 2020 so it is time for her period to be starting now. She states she has been spotting since yesterday as well but intermittently spotting for the past month. She denies any fevers chills vomiting or diarrhea. She denies any urinary symptoms. Timing/Duration: 24 hours Severity/Quality: moderate Radiation: no radiation Allergies: Coded Allergies: No Known Allergies (Unverified , 08/07/19) Home Meds Active Scripts Ferrous Sulfate (FERROUS SULFATE) 325 Mg Tablet, 325 MG PO DAILY for 90 Days, #90 TAB Prov:JOSSIE MADDOX DO 08/12/19 Reported Medications Pnv No.122/Iron/Folic Acid ( Multi Tablet) 1 Each Tablet, 1 EACH PO DAILY24 for , TAB 06/12/19 Vital Signs First Vital Signs Date Time Temp Pulse Resp B/P (MAP) Pulse Ox O2 Delivery O2 Flow Rate FiO2 01/22/21 11:27 98.2 92 18 94/52 (66) 98 Room Air Last Vital Signs Date Time Temp Pulse Resp B/P (MAP) Pulse Ox O2 Delivery O2 Flow Rate FiO2 01/22/21 11:27 98.2 92 18 98 01/22/21 11:27 94/52 (66) Room Air Past Medical History Medical History: no pertinent history Surgical History: , other Social History Alcohol Use: none Drug Use: none Constitutional: no symptoms reported Respiratory: no symptoms reported Cardiovascular: no symptoms reported Gastrointestinal: abdominal pain, nausea Genitourinary: no symptoms reported Musculoskeletal: no symptoms reported Skin: no symptoms reported Physical Exam General Appearance: No Apparent Distress, WD/WN HEENT: PERRL/EOMI Neck: Full Range of Motion, Supple Respiratory: no respiratory distress, no accessory muscle use Cardiovascular: Normal Peripheral Pulses 1 - Gastrointestinal: Soft, Tenderness Back: CVA Tenderness (R), CVA Tenderness (L) (Mild bilateral CVA tenderness) 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, No Motor/Sensory Deficits, Alert, Normal Mood/Affect, Oriented x 3 Skin: Normal Color, Warm/Dry Results/Orders Results/Orders Orders - KAVEH GALO MD Hcg Qualitative Serum (01/22/21 11:38) Urinalysis (01/22/21 11:38) Ketorolac Tromethamine (Toradol) (01/22/21 12:00) Ondansetron (Zofran Odt) (01/22/21 12:00) Ondansetron (Zofran Odt) (01/22/21 11:41) Ketorolac Tromethamine (Toradol) (01/22/21 11:42) Urine Culture (01/22/21 11:20) Vital Signs Date Time Temp Pulse Resp B/P (MAP) Pulse Ox O2 Delivery O2 Flow Rate FiO2 01/22/21 11:27 98.2 92 18 98 01/22/21 11:27 98.2 92 18 01/22/21 11:27 98.2 92 18 94/52 (66) 98 Room Air Administered Medications Medications (Trade) Dose Ordered Sig/Anne Route PRN Reason Start Time Stop Time Status Last Admin Dose Admin Ketorolac Tromethamine (Toradol) 15 mg OT ONCE IM 01/22/21 12:00 01/22/21 12:01 DC 01/22/21 11:44 15 MG Ondansetron HCl (Zofran Odt) 4 mg Q4H PRN SL NAUSEA / VOMITING 01/22/21 12:00 02/21/21 11:59 01/22/21 11:44 4 MG Laboratory Tests Test 01/22/21 11:20 01/22/21 11:55 Urine Collection Type RANDOM Urine Color YELLOW Urine Appearance CLEAR Urine Bilirubin NEGATIVE (NEGATIVE) Urine Ketones TRACE (NEGATIVE) H Urine Specific [place] 1.020 (1.005-1.030) Urine pH 7.5 (4.5-8.0) Urine Protein NEGATIVE (NEGATIVE) Urine Urobilinogen 0.2 E.U./dL (0.2) Urine Nitrate NEGATIVE (NEGATIVE) Urine Leukocyte Esterase NEGATIVE (NEGATIVE) Urine Glucose (Auto)(UA) NEGATIVE (NEGATIVE) Urine Blood MODERATE (NEGATIVE) H Urine RBC 2-5 RBC/HPF (NONE SEEN) Urine Squamous Epithelial Cells FEW #/HPF (FEW) Urine Bacteria RARE (NONE SEEN) Serum HCG, Qualitative NEGATIVE (NEGATIVE) ER DEPART Departure Time of Disposition: 12:50 Disposition: 01 HOME / SELF CARE / HOMELESS Impression: Primary Impression: Menstrual cramp Condition: Stable Referrals: PCP,UNKNOWN (PCP) PRIMARY CARE PROVIDER Duration or Time Spent with Pa: 9 Return to Work/School Can a patient return to school: Yes KAVEH GALO MD Jan 22, 2021 11:42
[2021-01-22 11:57] LABS: BILIRUBIN,URINE NEGATIVE (NEGATIVE); UA COLOR YELLOW; UROBILINOGEN,URINE 0.2 E.U./dL (0.2)
[2021-01-22] MEDS ORDERED: ZOFRAN ODT SL PRN (12:00)
[2021-01-22] MEDS ORDERED: TORADOL IM ONE (12:00)
[2021-01-22 13:03] VITALS: BP 112/52
== END 2021-01-22 13:02 | disposition home or self-care (01) ==
LOC: ER 11:14
DX: N94.6 Dysmenorrhea, unspecified (principal); Z79.1 Long term (current) use of non-steroidal anti-inflammatories (NSAID); Z79.899 Other long term (current) drug therapy
CPT/HCPCS: 36415; 81001; 84703; 87086; 96372; 99283; J1885

== ENCOUNTER → 2021-03-31 | Outpatient (CLI) | payer MEDICAID ==
--- NOTE | 2021-03-31 12:39 | DIREP ---
PROCEDURE:ABDOMINAL ULTRASOUND COMPARISON:None. INDICATIONS:R10.12 LUQ PAIN, R10.13 EPIGASTRIC PAIN, R10.33 PERIUMBILICAL PAIN X 3 MO. TECHNIQUE:High resolution sonographic examination was performed of the abdomen. FINDINGS: PANCREAS:Normal pancreas. LIVER:Normal hepatic parenchymal architecture. No focal hepatic lesion seen. Hepatopetal flow in the portal vein. GALLBLADDER:There is a small amount of sludge present within the dependent portion of the gallbladder. No evidence for gallbladder wall thickening or pericholecystic fluid. BILIARY:There is no biliary ductal dilatation. RIGHT KIDNEY:Normal. No hydronephrosis. LEFT KIDNEY:Normal. No hydronephrosis. SPLEEN:Mildly enlarged. No focal lesion. AORTA:The visualized portions appear unremarkable. IVC:Intrahepatic portions unremarkable. OTHER:Negative. No ascites is identified. AORTA (prox):1.3 x 2.0 cm AORTA (mid):1.3 x 1.5 cm AORTA (dist):1.2 x 1.5 cm CBD:0.3 cm GALLBLADDER WALL:0.3 cm RIGHT KIDNEY:10.8 x 5.0 x 5.0 cm LEFT KIDNEY:11.4 x 5.4 x 5.0 cm SPLEEN:13.0 x 11.1 x 5.0 cm, Volume: 378.0 ml. CONCLUSION: 1. Small amount of gallbladder sludge without evidence of acute cholecystitis. No biliary ductal dilatation. 2. Mild splenomegaly. 3. Otherwise normal abdominal ultrasound. Dictated by: [facility] Physician on 03/31/2021 at 11:54 AM [email or web address]
--- NOTE | 2021-03-31 12:45 | DIREP ---
PROCEDURE:US PELVIC FOLLOWED BY TRANSVAGINAL COMPARISON:None. INDICATIONS:R10.2 PELVIC AND PERINEAL PAIN X 3 MO. TECHNIQUE:Pelvic ultrasound using transabdominal technique. Endovaginal images were also obtained for better assessment of the uterus and adnexa. FINDINGS: LMP: 03/19/2021 UTERUS:Size is 8.2 x 4.2 x 6.3 cm. The myometrium is homogeneous. ENDOMETRIUM:Thickness is 9 mm. A moderate amount of free fluid with low level internal echoes is identified within the fundal portion of the endometrial cavity extending to the cervical cavity. RIGHT OVARY:Normal appearance. 3.5 x 1.9 x 2.7 cm, Volume: 9.4 ml. A corpus luteum cyst is identified measuring 2.0 cm. LEFT OVARY:Normal appearance. 4.0 x 1.8 x 2.1 cm, Volume: 7.9 ml. CUL-DE-SAC:A small amount of pelvic free fluid with low level internal echoes is identified. OTHER:Negative. CONCLUSION: 1. No myometrial mass identified. Moderate amount of complex fluid is seen in the endometrial cavity and cervix. Correlate with physical exam findings. 2. Normal sonographic appearance of the ovaries. No adnexal mass. Right corpus luteal cyst incidentally noted. 3. Small amount of mildly complex free fluid in the pelvis. Dictated by: [facility] Physician on 03/31/2021 at 12:18 PM ac
== END | disposition home or self-care (01) ==
LOC: RAD 08:13
PROVIDERS: ATTEND Nurse Practitioner Women's Health
DX: R16.1 Splenomegaly, not elsewhere classified (principal); R10.33 Periumbilical pain; R10.12 Left upper quadrant pain; R10.13 Epigastric pain; R10.2 Pelvic and perineal pain
CPT/HCPCS: 76700; 76830; 76856

== ENCOUNTER 2021-05-21 14:56 | Emergency (ER) | payer MEDICAID ==
[2021-05-21 15:07] VITALS: BP 111/63
[2021-05-21] MEDS ORDERED: ZOFRAN ONE (15:14)
[2021-05-21] MEDS ORDERED: TORADOL ONE (15:14)
[2021-05-21] MEDS ORDERED: NS 1000ML 1,000 ML ONE (15:14)
--- NOTE | 2021-05-21 15:22 | ER.PDOC ---
General Chief Complaint: Requesting Medical Care Stated Complaint: FEMALE ,WEAKNESS,VOMITING Time seen by MD: 15:09 Source: patient Exam Limitations: no limitations History of Present Illness Initial Comments This is a 36-year-old female who comes to the emergency department with diffuse abdominal pain for the past 3 days. She had associated nausea but then today began having nausea and vomiting for the past 1 hour. She had some recent menstrual cramps no dysuria or back pain. Because of her symptoms she comes to the emergency department. Prior history of otherwise no other history. The patient does not smoke or drink or use any drugs. Allergies: Coded Allergies: No Known Allergies (Unverified , 08/07/19) Home Meds Active Scripts Ferrous Sulfate (FERROUS SULFATE) 325 Mg Tablet, 325 MG PO DAILY for 90 Days, #90 TAB Prov:JOSSIE MADDOX DO 08/12/19 Reported Medications Pnv No.122/Iron/Folic Acid ( Multi Tablet) 1 Each Tablet, 1 EACH PO DAILY24 for , TAB 06/12/19 Vital Signs First Vital Signs Date Time Temp Pulse Resp B/P (MAP) Pulse Ox O2 Delivery O2 Flow Rate FiO2 05/21/21 15:07 97.8 125 16 99 05/21/21 15:07 111/63 (79) Room Air Last Vital Signs Date Time Temp Pulse Resp B/P (MAP) Pulse Ox O2 Delivery O2 Flow Rate FiO2 05/21/21 15:07 97.8 125 18 05/21/21 15:07 111/63 (79) 99 Room Air Past Medical History Medical History: no pertinent history Surgical History: , other Social History Drug Use: none Constitutional: no symptoms reported EENTM: no symptoms reported Respiratory: no symptoms reported Cardiovascular: no symptoms reported Gastrointestinal: denies no symptoms reported, denies see HPI, denies abdomen distended; abdominal pain; denies blood streaked bowels, denies constipated, denies diarrhea, denies difficulty swallowing; nausea; denies poor appetite; poor fluid intake; denies rectal bleeding; vomiting; denies other Genitourinary: denies no symptoms reported, denies see HPI, denies burning, denies dysuria, denies discharge, denies frequency, denies flank pain, denies hematuria, denies incontinence, denies pain, denies urgency, denies other Musculoskeletal: no symptoms reported Skin: no symptoms reported Psychiatric/Neurological: no symptoms reported Endocrine: no symptoms reported Hematologic/Lymphatic: no symptoms reported All Other Systems: Reviewed and Negative Physical Exam General Appearance: WD/WN, Moderate Distress HEENT: PERRL/EOMI, Normal ENT Inspection, TMs Normal, Pharynx Normal Neck: Non-Tender, Full Range of Motion, Supple, Normal Inspection Respiratory: chest non-tender, lungs clear, normal breath sounds, no respiratory distress, no accessory muscle use Cardiovascular: Normal Peripheral Pulses, Regular Rate, Rhythm, No Edema, No Gallop, No JVD, No Murmur Gastrointestinal: Normal Bowel Sounds, Soft, Tenderness (Moderate diffuse abdominal tenderness to palpation.) Pelvic: Normal External Exam, Normal Adnexa, No Cerv. 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, No Motor/Sensory Deficits, Alert, Normal Mood/Affect, Oriented x 3 Skin: Normal Color, Warm/Dry Lymphatic: No Adenopathy Results/Orders Results/Orders Orders - ULISES ALVARENGA MD Cbc With Auto Diff (05/21/21 15:13) Comprehensive Metabolic Panel (05/21/21 15:13) Amylase (05/21/21 15:13) Lipase (05/21/21 15:13) Urinalysis (05/21/21 15:13) Saline Lock (05/21/21 15:13) Ondansetron Hcl/Pf (Zofran) (05/21/21 15:30) Ketorolac Tromethamine (Toradol) (05/21/21 15:30) 0.9 % Sodium Chloride (Ns 1000ml) (05/21/21 15:30) Hcg Urine (05/21/21 15:16) Vital Signs Date Time Temp Pulse Resp B/P (MAP) Pulse Ox O2 Delivery O2 Flow Rate FiO2 05/21/21 15:07 97.8 125 18 05/21/21 15:07 97.8 125 18 111/63 (79) 99 Room Air 05/21/21 15:07 97.8 125 16 99 Administered Medications Medications (Trade) Dose Ordered Sig/Anne Route PRN Reason Start Time Stop Time Status Last Admin Dose Admin Ketorolac Tromethamine (Toradol) 30 mg OT PRN IV PAIN 4 - 6 05/21/21 15:30 05/26/21 15:29 05/21/21 15:23 30 MG Ondansetron HCl (Zofran) 4 mg OT PRN IV NAUSEA / VOMITING 05/21/21 15:30 06/20/21 15:29 05/21/21 15:23 4 MG Sodium Chloride 1,000 ml @ 100 mls/hr OT ONCE IV 05/21/21 15:30 05/22/21 01:29 05/21/21 15:22 100 MLS/HR Laboratory Tests Test 05/21/21 15:20 05/21/21 16:30 White Blood Count 1.3 10^3/uL (4.5-11.0) *L Red Blood Count 4.44 10^6/uL (4.00-5.20) Hemoglobin 14.1 g/dL (12.0-15.0) Hematocrit 40.6 % (36.0-46.0) Mean Corpuscular Volume 91.4 fL (78-100) Mean Corpuscular Hemoglobin 31.8 pg (26-34) Mean Corpuscular Hemoglobin Concent 34.7 g/dL (33-36.5) Red Cell Distribution Width 12.1 % (11.5-14.5) Platelet Count 128 10^3/uL (150-400) L Mean Platelet Volume 9.3 fL (7.8-11.0) Neutrophils (%) (Auto) 84.8 % (41.0-85.0) Lymphocytes (%) (Auto) 13.6 % (24.0-44.0) L Monocytes (%) (Auto) 0.8 % (5.0-12.0) L Neutrophils # (Auto) 1.1 10^3/uL (1.8-7.7) L Lymphocytes # (Auto) 0.17 10^3/uL1 (1.0-4.8) L Monocytes # (Auto) 0.0 10^3/uL (0.3-0.8) L Absolute Immature Granulocyte (auto 0 10^3 u/L (0-2) Absolute Eosinophils (auto) 0.0 10^3/uL (0.0-0.2) Immature Granulocytes % 0.00 % (0.00-0.50) Eosinophils % 0.0 % (0.0-5.0) Basophils % 0.8 % (0.0-0.2) H Basophils # 0.0 10^3/uL (0.0-0.1) Sodium Level 135 mmol/L (132-145) Potassium Level 2.9 mmol/L (3.6-5.2) L Chloride Level 95.0 mmol/L (96-109) L Carbon Dioxide Level 25.2 mmol/L (20.0-32) Anion Gap 17.7 Blood Urea Nitrogen 10 mg/dL (7-18) Creatinine 1.08 mg/dL (0.59-1.40) Estimated GFR () 69.1 (>/=60) Est GFR (CKD-EPI)(Non-Afr Chinese) 57.1 (>/=60) BUN/Creatinine Ratio 9.0 Glucose Level 121 mg/dL (70-110) H Calcium Level 9.2 mg/dL (8.4-10.5) Total Bilirubin 1.8 mg/dL (0.2-1.0) H Aspartate Amino Transferase (AST) 15 U/L (0-35) Alanine Aminotransferase (ALT) 20 U/L (12-78) Alkaline Phosphatase 176 U/L (50-136) H Total Protein 8.3 g/dL (6.4-8.2) H Albumin 4.0 g/dL (3.4-5.0) Globulin 4.3 Albumin/Globulin Ratio 0.930 Amylase Level 56 U/L (25-115) Lipase 66 U/L (114-286) L Urine Collection Type UNKNOWN Urine Color JAYNE Urine Appearance CLEAR Urine Reducing Substances (NEGATIVE) Urine Bilirubin 1+ (NEGATIVE) H Urine Ictotest NEGATIVE (NEGATIVE) Urine Ketones TRACE (NEGATIVE) H Urine Specific [place] 1.015 (1.005-1.030) Urine pH 7.0 (4.5-8.0) Urine Protein 1+ (NEGATIVE) H Urine Urobilinogen 2.0 E.U./dL (0.2) Urine Nitrate NEGATIVE (NEGATIVE) Urine Leukocyte Esterase TRACE (NEGATIVE) H Urine Glucose (Auto)(UA) NEGATIVE (NEGATIVE) Urine Ketones (Manual) MODERATE (NEGATIVE) H Urine Blood 3+ (NEGATIVE) H Urine RBC 2-5 RBC/HPF (NONE SEEN) Urine WBC NONE SEEN WBC/HPF (0-2) Urine Squamous Epithelial Cells FEW (<=FEW) Urine Bacteria NONE SEEN (NONE SEEN) Urine HCG, Qualitative NEGATIVE (NEGATIVE) Progress Progress While in the emergency department, the patient received IV fluids, Zofran for nausea. She also received Toradol for pain control. When I went back into reevaluate the patient she is much better her nausea is gone and she is feeling better. The cause of the patient's low white count is unknown at this time, she will need to follow-up with her primary doctor to have a second blood count drawn in a couple of days. ER DEPART Departure Time of Disposition: 15:58 Disposition: 01 HOME / SELF CARE / HOMELESS Impression: Primary Impression: Abdominal pain Condition: Stable Patient Instructions: Abdominal Pain Referrals: PCP,UNKNOWN (PCP) PRIMARY CARE PROVIDER Additional Instructions: Abdominal return to the emergency department if your pain worsens. Take Levsin for abdominal cramping and the Zofran for nausea. Comments The patient was given a prescription for Levsin and Zofran. Duration or Time Spent with Pa: Unknown Return to Work/School Can a patient return to work?: No Problem Qualifiers Primary Impression: Abdominal pain Abdominal location: generalized Qualified Codes: R10.84 - Generalized abdominal pain ULISES ALVARENGA MD May 21, 2021 15:22
[2021-05-21 15:24] LABS: BASOPHIL % 0.8 % (0.0-0.2); LYMPHOCYTES # 0.17 10^3/uL1 (1.0-4.8); LYMPHOCYTES % 13.6 % (24.0-44.0); MEAN CORP HGB 31.8 pg (26-34); MONOCYTES % 0.8 % (5.0-12.0); NEUTROPHIL # 1.1 10^3/uL (1.8-7.7); NEUTROPHILS % 84.8 % (41.0-85.0); PLATELET COUNT 128 10^3/uL (150-400); RED CELL DISTRIBUTION WIDTH 12.1 % (11.5-14.5)
[2021-05-21] MEDS ORDERED: ZOFRAN IV PRN (15:30)
[2021-05-21] MEDS ORDERED: NS 1000ML 1,000 ML IV ONE (15:30)
[2021-05-21] MEDS ORDERED: TORADOL IV PRN (15:30)
[2021-05-21 15:37] LABS: CALCIUM 9.2 mg/dL (8.4-10.5); CARBON DIOXIDE 25.2 mmol/L (20.0-32)
[2021-05-21 16:34] LABS: BILIRUBIN,URINE 1+ (NEGATIVE)
[2021-05-21 16:59] VITALS: BP 122/70
[2021-05-21 17:01] LABS: BAND NEUTROPHILS 4 % (2-6); LYMPHOCYTE 20 % (25-36); MONOCYTE 10 % (3-9); SEGMENTED NEUTROPHILS 62 % (31-76)
== END 2021-05-21 16:59 | disposition home or self-care (01) ==
LOC: ER 14:56
DX: R10.84 Generalized abdominal pain (principal); R11.2 Nausea with vomiting, unspecified; Z79.1 Long term (current) use of non-steroidal anti-inflammatories (NSAID); Z79.899 Other long term (current) drug therapy
CPT/HCPCS: 36415; 80053; 81001; 81025; 82150; 83690; 85025; 96361; 96374; 96375; 99284; J1885; J2405; J7030

== ENCOUNTER → 2021-05-24 | Outpatient (CLI) | payer MEDICAID ==
[2021-05-24 14:33] LABS: EOSINOPHIL # 0.1 10^3/uL (0.0-0.2); EOSINOPHIL % 3.2 % (0.0-5.0); LYMPHOCYTES # 0.76 10^3/uL1 (1.0-4.8); LYMPHOCYTES % 24.7 % (24.0-44.0); MONOCYTES # 0.3 10^3/uL (0.3-0.8); MONOCYTES % 10.4 % (5.0-12.0); NEUTROPHIL # 1.9 10^3/uL (1.8-7.7); NEUTROPHILS % 61.1 % (41.0-85.0); PLATELET COUNT 175 10^3/uL (150-400); RED CELL DISTRIBUTION WIDTH 12.2 % (11.5-14.5)
== END | disposition home or self-care (01) ==
LOC: LAB 14:19
PROVIDERS: ATTEND Nurse Practitioner Women's Health
DX: D69.6 Thrombocytopenia, unspecified (principal)
CPT/HCPCS: 36415; 85025

== ENCOUNTER → 2021-06-02 | Outpatient (CLI) | payer MEDICAID ==
--- NOTE | 2021-06-02 16:17 | DIREP ---
PROCEDURE:US PELVIC FOLLOWED BY TRANSVAGINAL COMPARISON:[facility], [place], US PELVIC FOLLOWED BY TRANSVAGINAL, 03/31/2021, 09:30 AM. INDICATIONS:PELVIC PAIN, HX OV CYST, N/V TECHNIQUE:Pelvic ultrasound using transabdominal technique. Endovaginal images were also obtained for better assessment of the uterus and adnexa. FINDINGS: LMP: 05/20/2021 UTERUS:Size is 7.9 x 5.5 x 6.1 cm. The myometrium is homogeneous. ENDOMETRIUM:Thickness is 5.6 mm. RIGHT OVARY:Normal appearance. 3.4 x 1.3 x 2.6 cm. LEFT OVARY:6.2 x 3.6 x 4.4 cm. A 4.0 x 2.7 x 3.5 cm cyst with reticular internal echoes and eccentric clot retraction with fluid fluid level is visualized in the left ovary. CUL-DE-SAC:Normal. OTHER:Negative. CONCLUSION: Left ovarian cyst: Hemorrhagic. [facility] on 06/02/2021 at 03:58 PM ac
== END | disposition home or self-care (01) ==
LOC: RAD 12:02
PROVIDERS: ATTEND Nurse Practitioner Women's Health
DX: N83.202 Unspecified ovarian cyst, left side (principal); N94.89 Other specified conditions associated with female genital organs and menstrual cycle
CPT/HCPCS: 76830; 76856